=== PATIENT | male | born 1985 | race Hispanic/Latino ===

== ENCOUNTER 2023-12-07 16:16 | Emergency (ER) | payer SELFPAY ==
[~2023-12-07] VITALS: Ht 170.2 cm; Wt 88.5 kg
[2023-12-07 16:20] VITALS: O2SAT 100
[2023-12-07] MEDS: DEXAMETHASONE SOD PHOS 10 MG/1 ML VIAL IM ONE (16:39)
[2023-12-07] MEDS ORDERED: MEDROL4 M2 PO (16:40)
[2023-12-07] MEDS ORDERED: METHOCARBAMOL750 MG PO (16:40)
== END 2023-12-07 17:00 | disposition home or self-care (01) ==
LOC: ER 16:23
DX: M54.42 Lumbago with sciatica, left side (principal)
CPT/HCPCS: 99282; J1100